=== PATIENT | male | born 1990 | race Caucasian/White ===

== ENCOUNTER 2018-07-22 06:24 | Emergency (ER) | payer BC ==
[2018-07-22] MEDS ORDERED: SODIUM CHLORIDE 0.9% 1,000 ML IV STA (06:42)
[2018-07-22 06:55] LABS: Basophils % (A) 1 %; Eosinophils # (A) 0.2 k/uL (0-0.7); Eosinophils % (A) 2 %; HCT 46.2 % (39.0-53.0); HGB 15.3 gm/dL (13.0-17.5); Lymphocytes # (A) 1.8 k/uL (1.0-4.8); Lymphocytes % (A) 19 %; MCHC 33.1 g/dL (31.0-37.0); MCV 87.8 fL (80.0-100.0); Mean Platelet Volume 7.5; Monocytes # (A) 0.5 k/uL (0-1.0); Monocytes % (A) 5 %; Neutrophils # (A) 6.6 k/uL (1.3-7.7); Neutrophils % (A) 72 %; Platelet Count 211 k/uL (150-450); RBC 5.27 m/uL (4.30-5.90); WBC 9.2 k/uL (3.8-10.6)
--- NOTE | 2018-07-22 06:59 | XR ---
EXAMINATION TYPE: XR chest 2V DATE OF EXAM: 07/22/2018 HISTORY: syncope. REFERENCE: Previous study dated 07/02/2009. FINDINGS: The lungs are clear. Pleural space are clear. The heart is not enlarged. IMPRESSION: NORMAL CHEST.
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
[2018-07-22 07:04] LABS: Albumin 4.5 g/dL (3.5-5.0); Anion Gap 10 mmol/L; Calcium 9.5 mg/dL (8.4-10.2); Carbon Dioxide 24 mmol/L (22-30); Chloride 107 mmol/L (98-107); Glucose 132 mg/dL (74-99); Sodium 141 mmol/L (137-145); Total Bilirubin 0.5 mg/dL (0.2-1.3); Total Protein 7.6 g/dL (6.3-8.2)
[2018-07-22 07:05] LABS: Blood Urea Nitrogen 13 mg/dL (9-20); Potassium 4.2 mmol/L (3.5-5.1)
[2018-07-22 07:06] LABS: ALT 24 U/L (21-72); AST 24 U/L (17-59); Alkaline Phosphatase 78 U/L (38-126); Magnesium 1.8 mg/dL (1.6-2.3)
[2018-07-22 07:07] LABS: D-Dimer 0.18 mg/L FEU (<0.60); Partial Thromboplastin Time 24.3 sec (22.0-30.0); Prothrombin Time 10.4 sec (9.0-12.0)
[2018-07-22 08:00] VITALS: BP 130/81; PULSE 98; RESP 18; TEMP 98
[2018-07-22 13:37] LABS: Glucose,Whole Blood 127 mg/dL (75-99)
== END 2018-07-22 08:00 | disposition home or self-care (01) ==
LOC: EC 06:24
DX: I10 Essential (primary) hypertension (principal); R07.89 Other chest pain; R00.2 Palpitations; F17.200 Nicotine dependence, unspecified, uncomplicated
CPT/HCPCS: 36415; 71046; 80053; 83735; 84484; 85025; 85379; 85610; 85730; 93005; 96360; 99284

== ENCOUNTER 2018-11-23 12:54 | Day surgery (SDC) | payer BC ==
[2018-11-20 11:39] VITALS: BMI 34.3
[2018-11-23 14:09] LABS: African American GFR (CKD) >90 (>60 ml/min/1.73 sqM); Anion Gap 12 mmol/L; Blood Urea Nitrogen 17 mg/dL (9-20); Calcium 9.9 mg/dL (8.4-10.2); Carbon Dioxide 24 mmol/L (22-30); Chloride 104 mmol/L (98-107); Glucose 96 mg/dL (74-99); Potassium 4.2 mmol/L (3.5-5.1); Sodium 140 mmol/L (137-145)
[2018-11-23 14:14] LABS: Basophils # (A) 0.1 k/uL (0-0.2); Basophils % (A) 2 %; Eosinophils # (A) 0.1 k/uL (0-0.7); Eosinophils % (A) 2 %; HCT 48.1 % (39.0-53.0); Lymphocytes # (A) 1.9 k/uL (1.0-4.8); Lymphocytes % (A) 25 %; MCH 29.3 pg (25.0-35.0); MCHC 33.1 g/dL (31.0-37.0); MCV 88.4 fL (80.0-100.0); Mean Platelet Volume 7.4; Monocytes # (A) 0.4 k/uL (0-1.0); Monocytes % (A) 6 %; Neutrophils # (A) 4.8 k/uL (1.3-7.7); Neutrophils % (A) 64 %; Platelet Count 261 k/uL (150-450); RBC 5.45 m/uL (4.30-5.90); RDW 12.9 % (11.5-15.5); WBC 7.5 k/uL (3.8-10.6)
[2018-11-23] MEDS ORDERED: ISOPROTERENOL 250 MCG/1.25 ML SYR IV ONE (16:39)
[2018-11-23] MEDS ORDERED: fentaNYL (PF) 50 MCG/ML 2 ML AMP ONE (16:39)
[2018-11-23] MEDS ORDERED: KETAMINE 10 MG/ML 20 ML VIAL ONE (16:39)
[2018-11-23] MEDS ORDERED: MIDAZOLAM 2 MG/2 ML VIAL ONE (16:39)
[2018-11-23] MEDS ORDERED: IV FLUID CONTINUATION 900 ML IV ONE (16:39)
[2018-11-23] MEDS ORDERED: PROPOFOL 10 MG/ML 20 ML VIAL IV ONE (16:39)
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
[2018-11-23] MEDS ORDERED: LIDOCAINE 1% INJ 10MG/ML (20 ML MDV) ONE (17:03)
[2018-11-23] MEDS ORDERED: LIDOCAINE 1% INJ 10MG/ML (20 ML MDV) SQ ONE (17:04)
[2018-11-23] MEDS ORDERED: ACETAMINOPHEN TAB 325 MG TAB PO PRN (18:20)
[2018-11-23] MEDS ORDERED: ACETAMINOPHEN IV (For NPO) 1,000 MG in EMPTY BAG 1 BAG IVPB ONE (19:00)
[2018-11-23] MEDS: LACTATED RINGERS 1,000 ML IV SCH ×2 (19:49→20:02)
[2018-11-23] MEDS: SODIUM CHLORIDE 0.9% 1,000 ML IV SCH (19:49)
[2018-11-23] MEDS ORDERED: CITALOPRAM HYDROBROMIDE 20 MG TAB PO SCH (21:00)
[2018-11-23] MEDS ORDERED: HYDROcodone/APAP 5-325MG 1 EACH TAB PO PRN (22:00)
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
--- NOTE | 2018-11-23 22:47 | LTR ---
To: Dr. Isis Avelar Re: Marko Duran (89) Dear Isis, I had the pleasure of seeing Marko Duran in electrophysiology followup. Marko has had palpitations as well as one documented run of nonsustained ventricular tachycardia on the event monitor. Today he underwent a detailed diagnostic EP study with and without Isuprel. No arrhythmias were inducible, either SVT or VT. This was a completely normal EP study. He will continue to follow up with you and Dr. Pyle as before. Thank you for entrusting me with the care of your patient. Warm regards. Sincerely, Cristino Brock MD MMYURYL / TAVON: [id number] /
[2018-11-24] MEDS: SODIUM CHLORIDE 0.9% 1,000 ML IV SCH (05:44)
[2018-11-24 07:12] VITALS: BP 121/75; PULSE 68; RESP 16; TEMP 97.8
--- NOTE | 2018-11-24 08:04 | P.DS ---
Providers Attending physician: Cristino Brock Primary care physician: [facility] Course: Patient is doing well from a cardiac standpoint. He denies any chest discomfort dizziness lightheadedness or palpitations. Last night he did have some oozing the groin but this morning there is no oozing. Minimal pain no swelling no hematoma no bruising No chest discomfort dizziness lightheadedness or shortness of breath Twelve-lead ECG shows sinus rhythm normal AL narrow QRS narrow QRS normal QT interval Heart sounds normal S1 normal S2, soft systolic murmur Breath sounds are clear no rhonchi no crackles Abdomen soft nontender Extremity warm no edema No JVD Impression Recurrent palpitations 1 ventricular quadruplet on monitor 1 episode of presyncope preceded by palpitations No inducible arrhythmias at EP study no supraventricular arrhythmias no ventricular arrhythmias Plan Follow-up with Dr. Pyle within a week No changes in medications Adequate hydration Patient may go home from a cardiac standpoint today as well as amylase in the hallways and his groins healing well and he is hemodynamically stable Plan - Discharge Summary Discharge Rx Participant: Yes New Discharge Prescriptions: No Action Cetirizine HCl [Zyrtec] 10 mg PO DAILY Lisinopril [Prinivil] 5 mg PO DAILY Citalopram Hydrobromide [CeleXA] 20 mg PO HS Discharge Medication List Cetirizine HCl [Zyrtec] 10 mg PO DAILY 11/20/18 [History] Citalopram Hydrobromide [CeleXA] 20 mg PO HS 11/20/18 [History] Lisinopril [Prinivil] 5 mg PO DAILY 11/20/18 [History] Follow up Appointment(s)/Referral(s): Shon Pyle MD [STAFF PHYSICIAN] - 1 Week Activity/Diet/Wound Care/Special Instructions: Post EP study - Ablation instructions 1. Keep access sites dry for 2 days. 2. No heavy lifting or straining for 2 days. 3. Avoid bending the hips repeatedly for 2 days. 4. You may go up and down stairs slowly Call if the following is noted 1. Bleeding, increasing swelling or pain at the access sites. 2. Increasing chest discomfort, especially upon taking a deep breath. 3. Increasing shortness of breath, at rest or with exertion. 4. Undue cough / phlegm 5. Difficulty or pain while swallowing. 6. Pain or change in color in the extremities. 7. Fever, chills, rigors. 8. Increasing headache or neurologic symptoms. 9. Dizziness, fainting, palpitations Follow-up with Dr. Pyle within 1-2 weeks No changes in medications
[2018-11-24] MEDS ORDERED: LISINOPRIL 5 MG TAB PO SCH (09:00)
[2018-11-24] MEDS ORDERED: LORATADINE 10 MG TAB PO SCH (09:00)
== END 2018-11-24 10:31 | disposition home or self-care (01) ==
LOC: CATHEP 12:54 → 1SOBS 18:19 → CATHEP 11-24 10:31
PROVIDERS: ATTEND Internal Medicine Clinical Cardiac Electrophysiology
DX: I47.2 Ventricular tachycardia (principal); R55 Syncope and collapse; R00.2 Palpitations; I10 Essential (primary) hypertension; F17.210 Nicotine dependence, cigarettes, uncomplicated; G43.909 Migraine, unspecified, not intractable, without status migrainosus; Z79.899 Other long term (current) drug therapy
CPT/HCPCS: 93623; 93620; 80048; 85025; C1894; C1769 ×2; C1730 ×3; J2250; J2001; J3010; J2704

== ENCOUNTER 2019-04-23 09:27 | Emergency (ER) | payer BC ==
[2019-04-23 09:43] VITALS: TEMP 98.4
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
[2019-04-23] MEDS ORDERED: KETOROLAC 30 MG/ML 1 ML VIAL IM STA (10:06)
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
[2019-04-23 11:11] VITALS: BP 131/72; PULSE 70; RESP 16
== END 2019-04-23 11:10 | disposition home or self-care (01) ==
LOC: EC 09:27
DX: S90.01XA Contusion of right ankle, initial encounter (principal); F41.9 Anxiety disorder, unspecified; I10 Essential (primary) hypertension; F17.200 Nicotine dependence, unspecified, uncomplicated; Z79.899 Other long term (current) drug therapy; Z95.5 Presence of coronary angioplasty implant and graft; Y93.55 Activity, bike riding; V28.4XXA Motorcycle driver injured in noncollision transport accident in traffic accident, initial encounter; Y92.410 Unspecified street and highway as the place of occurrence of the external cause; Y93.89 Activity, other specified
CPT/HCPCS: 73610; 73630; 96372; 99283; J1885

== ENCOUNTER → 2019-12-17 | Outpatient (CLI) | payer BC | END | disposition home or self-care (01) | LOC: LABWHC1 14:10 | PROVIDERS: ATTEND Internal Medicine | DX: Z03.818 Encounter for observation for suspected exposure to other biological agents ruled out (principal) | CPT/HCPCS: U0003; C9803 ==

== ENCOUNTER 2020-07-19 02:04 | Emergency (ER) | payer BC ==
[2020-07-19] MEDS ORDERED: MECLIZINE 12.5 MG TAB PO STA (02:32)
[2020-07-19] MEDS ORDERED: SODIUM CHLORIDE 0.9% 1,000 ML IV STA (02:32)
--- NOTE | 2020-07-19 02:36 | ED ---
General Adult HPI - General Chief complaint: Dizziness Stated complaint: Chest pain, dizziness Time Seen by Provider: 07/19/20 02:24 Source: patient Mode of arrival: wheelchair Limitations: no limitations - History of Present Illness Initial comments: 30-year-old male patient presents to the emergency department today for evaluation of dizziness and chest pain. 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 States he became very dizzy and almost passed out. States he did have some tightness to the substernal region. Denies any shortness of breath. Denies numbness tingling or weakness to the extremities. Patient states that he has been having dizziness for the last 1.5 months. States he did see his doctor for it who started him on Buspar. States that the medication made the symptoms worse so he stopped it. Patient has not been evaluated any further for the dizziness. He states that he has some dizziness everyday, feels like his head is spinning around. Denies any syncope. Reports daily headaches as well. Reports occasional blurred vision, no double vision. Denies any head injury. Has been worked up in the past for palpitations, wore heart monitor and had exploratory heart catheterization which were negative. - Related Data Home Medications Medication Instructions Recorded Confirmed Cetirizine HCl [Zyrtec] 10 mg PO DAILY 11/20/18 11/23/18 Citalopram Hydrobromide [CeleXA] 20 mg PO HS 11/20/18 11/23/18 lisinopriL [Prinivil] 5 mg PO DAILY 11/20/18 11/23/18 Previous Rx's Medication Instructions Recorded Meclizine [Antivert] 25 mg PO TID #15 tab 07/19/20 Allergies Allergy/AdvReac Type Severity Reaction Status Date / Time No Known Allergies Allergy Verified 07/19/20 02:17 Review of Systems ROS Statement: Those systems with pertinent positive or pertinent negative responses have been documented in the HPI. ROS Other: All systems not noted in ROS Statement are negative. Past Medical History Past Medical History: Hypertension Additional Past Medical History / Comment(s): migraines, See Dr Brock H&P, anxiety History of Any Multi-Drug Resistant Organisms: None Reported Past Surgical History: No Surgical Hx Reported, Heart Catheterization Additional Past Surgical History / Comment(s): Denies surgery Past Anesthesia/Blood Transfusion Reactions: Family History of Problems w/ Anesthesia, Motion Sickness Additional Past Anesthesia/Blood Transfusion Reaction / Comment(s): mom woke up and had a panic attack Past Psychological History: Anxiety, Panic Disorder Smoking Status: Current every day smoker Past Alcohol Use History: Rare Past Drug Use History: None Reported - Past Family History Mother Family Medical History: No Reported History General Exam Limitations: no limitations General appearance: alert, in no apparent distress, other (This is a well-develo ped, well-nourished adult male patient in no acute distress. Vital signs upon presentation are temperature 98.7F, pulse 86, respirations 18, blood pressure 135/87, pulse ox 97% on room air.) Eye exam: Present: normal appearance, PERRL, EOMI. Absent: scleral icterus, conjunctival injection, nystagmus, periorbital swelling ENT exam: Present: normal exam, normal oropharynx, mucous membranes moist Respiratory exam: Present: normal lung sounds bilaterally. Absent: respiratory distress, wheezes, rales, rhonchi, stridor Cardiovascular Exam: Present: regular rate, normal rhythm, normal heart sounds. Absent: systolic murmur, diastolic murmur, rubs, gallop, clicks GI/Abdominal exam: Present: soft, normal bowel sounds. Absent: distended, tenderness, guarding, rebound, rigid Neurological exam: Present: alert, oriented X3, CN II-XII intact Expanded Speech: Present: fluid speech Cranial nerves: EOM's Intact: Normal, Nystagmus: Normal Motor strength exam: RUE: 5, LUE: 5, RLE: 5, LLE: 5 Psychiatric exam: Present: normal affect, normal mood Skin exam: Present: warm, dry, intact, normal color. Absent: rash Course Vital Signs 07/19/20 07/19/20 02:14 03:17 Temperature 98.7 F Pulse Rate 86 81 Respiratory 18 20 Rate Blood Pressure 135/87 112/78 O2 Sat by Pulse 97 98 Oximetry EKG Findings - EKG Comments: EKG Findings:: EKG obtained at 222 shows normal sinus rhythm with a ventricular rate is 78, DC interval 202, QRS duration 98, QT 362, QTc 412. No evidence of ST elevation or depression. Medical Decision Making - Medical Decision Making 30-year-old male patient percents emergency department today for evaluation of chest pain and dizziness. 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 Physical examination is unremarkable. Lungs are clear to auscultation with good air movement. Vital signs are within normal range. EKG was unremarkable. Chest x- ray is negative. States he has been having dizziness and headaches for at least a month and a half. We will try a course of meclizine to see if this is helpful to dizziness. He is instructed to primary care physician, discuss referral to neurology and/or ENT for further evaluation. Return parameters discussed in detail. He verbalizes understanding and agrees with this plan. Case discussed my attending Dr. Jasso. - Lab Data Result diagrams: 07/19/20 02:42 07/19/20 02:42 Lab Results 07/19/20 07/19/20 07/19/20 Range/Units 02:42 02:42 02:42 WBC 8.5 (3.8-10.6) k/uL RBC 4.76 (4.30-5.90) m/uL Hgb 14.7 (13.0-17.5) gm/dL Hct 41.6 (39.0-53.0) % MCV 87.4 (80.0-100.0) fL MCH 30.8 (25.0-35.0) pg MCHC 35.3 (31.0-37.0) g/dL RDW 12.5 (11.5-15.5) % Plt Count 226 (150-450) k/uL MPV 7.6 Neutrophils % 62 % Lymphocytes % 28 % Monocytes % 6 % Eosinophils % 2 % Basophils % 1 % Neutrophils # 5.2 (1.3-7.7) k/uL Lymphocytes # 2.4 (1.0-4.8) k/uL Monocytes # 0.5 (0-1.0) k/uL Eosinophils # 0.2 (0-0.7) k/uL Basophils # 0.1 (0-0.2) k/uL Sodium 138 (137-145) mmol/L Potassium 4.2 (3.5-5.1) mmol/L Chloride 106 (98-107) mmol/L Carbon Dioxide 25 (22-30) mmol/L Anion Gap 7 mmol/L BUN 16 (9-20) mg/dL Creatinine 1.00 (0.66-1.25) mg/dL Est GFR (CKD-EPI)AfAm >90 (>60 ml/min/1.73 sqM) Est GFR (CKD-EPI)NonAf >90 (>60 ml/min/1.73 sqM) Glucose 103 H (74-99) mg/dL Calcium 9.3 (8.4-10.2) mg/dL Magnesium 1.9 (1.6-2.3) mg/dL Total Bilirubin 0.1 L (0.2-1.3) mg/dL AST 23 (17-59) U/L ALT 21 (4-49) U/L Alkaline Phosphatase 78 (38-126) U/L Troponin I (0.000-0.034) ng/mL Total Protein 6.9 (6.3-8.2) g/dL Albumin 4.3 (3.5-5.0) g/dL Urine Color Yellow Urine Appearance Clear (Clear) Urine pH 6.5 (5.0-8.0) Ur Specific [place] 1.027 (1.001-1.035) Urine Protein Negative (Negative) Urine Glucose (UA) Negative (Negative) Urine Ketones Negative (Negative) Urine Blood Negative (Negative) Urine Nitrite Negative (Negative) Urine Bilirubin Negative (Negative) Urine Urobilinogen <2.0 (<2.0) mg/dL Ur Leukocyte Esterase Negative (Negative) 07/19/20 Range/Units 02:42 WBC (3.8-10.6) k/uL RBC (4.30-5.90) m/uL Hgb (13.0-17.5) gm/dL Hct (39.0-53.0) % MCV (80.0-100.0) fL MCH (25.0-35.0) pg MCHC (31.0-37.0) g/dL RDW (11.5-15.5) % Plt Count (150-450) k/uL MPV Neutrophils % % Lymphocytes % % Monocytes % % Eosinophils % % Basophils % % Neutrophils # (1.3-7.7) k/uL Lymphocytes # (1.0-4.8) k/uL Monocytes # (0-1.0) k/uL Eosinophils # (0-0.7) k/uL Basophils # (0-0.2) k/uL Sodium (137-145) mmol/L Potassium (3.5-5.1) mmol/L Chloride (98-107) mmol/L Carbon Dioxide (22-30) mmol/L Anion Gap mmol/L BUN (9-20) mg/dL Creatinine (0.66-1.25) mg/dL Est GFR (CKD-EPI)AfAm (>60 ml/min/1.73 sqM) Est GFR (CKD-EPI)NonAf (>60 ml/min/1.73 sqM) Glucose (74-99) mg/dL Calcium (8.4-10.2) mg/dL Magnesium (1.6-2.3) mg/dL Total Bilirubin (0.2-1.3) mg/dL AST (17-59) U/L ALT (4-49) U/L Alkaline Phosphatase (38-126) U/L Troponin I <0.012 (0.000-0.034) ng/mL Total Protein (6.3-8.2) g/dL Albumin (3.5-5.0) g/dL Urine Color Urine Appearance (Clear) Urine pH (5.0-8.0) Ur Specific [place] (1.001-1.035) Urine Protein (Negative) Urine Glucose (UA) (Negative) Urine Ketones (Negative) Urine Blood (Negative) Urine Nitrite (Negative) Urine Bilirubin (Negative) Urine Urobilinogen (<2.0) mg/dL Ur Leukocyte Esterase (Negative) - Radiology Data Radiology results: image reviewed No acute cardiopulmonary process Disposition Clinical Impression: Dizziness, Chest pain Disposition: HOME SELF-CARE Condition: Good Instructions (If sedation given, give patient instructions): Dizziness (ED), Chest Pain (ED) Additional Instructions: Increase fluids. Rest. Take medications as directed. Follow-up with the primary care physician for recheck in 1-2 days. Discussed possible referral to neurology or ENT if symptoms do not improve. Return for any new, worsening, or concerning symptoms. Prescriptions: Meclizine [Antivert] 25 mg PO TID #15 tab Is patient prescribed a controlled substance at d/c from ED?: No Referrals: Isis Avelar MD [Primary Care Provider] - 1-2 days Time of Disposition: 03:49
[2020-07-19 03:00] LABS: Basophils # (A) 0.1 k/uL (0-0.2); Basophils % (A) 1 %; Eosinophils # (A) 0.2 k/uL (0-0.7); Eosinophils % (A) 2 %; HCT 41.6 % (39.0-53.0); HGB 14.7 gm/dL (13.0-17.5); Lymphocytes # (A) 2.4 k/uL (1.0-4.8); Lymphocytes % (A) 28 %; MCH 30.8 pg (25.0-35.0); MCHC 35.3 g/dL (31.0-37.0); MCV 87.4 fL (80.0-100.0); Mean Platelet Volume 7.6; Monocytes # (A) 0.5 k/uL (0-1.0); Monocytes % (A) 6 %; Neutrophils # (A) 5.2 k/uL (1.3-7.7); Neutrophils % (A) 62 %; Platelet Count 226 k/uL (150-450); RBC 4.76 m/uL (4.30-5.90); RDW 12.5 % (11.5-15.5); WBC 8.5 k/uL (3.8-10.6)
[2020-07-19 03:07] LABS: ALT 21 U/L (4-49); AST 23 U/L (17-59); African American GFR (CKD) >90 (>60 ml/min/1.73 sqM); Albumin 4.3 g/dL (3.5-5.0); Alkaline Phosphatase 78 U/L (38-126); Anion Gap 7 mmol/L; Blood Urea Nitrogen 16 mg/dL (9-20); Calcium 9.3 mg/dL (8.4-10.2); Carbon Dioxide 25 mmol/L (22-30); Chloride 106 mmol/L (98-107); Glucose 103 mg/dL (74-99); Magnesium 1.9 mg/dL (1.6-2.3); Non-African American GFR(CKD) >90 (>60 ml/min/1.73 sqM); Potassium 4.2 mmol/L (3.5-5.1); Sodium 138 mmol/L (137-145); Total Bilirubin 0.1 mg/dL (0.2-1.3); Total Protein 6.9 g/dL (6.3-8.2)
[2020-07-19 03:14] LABS: Appearance,Urine Clear (Clear); Bilirubin,Urine Negative (Negative); Blood,Urine Negative (Negative); Color,Urine Yellow; Glucose,Urine (UA) Negative (Negative); Ketones,Urine Negative (Negative); Leukocyte Esterase,Urine Negative (Negative); Nitrite,Urine Negative (Negative); PH, Urine 6.5 (5.0-8.0); Protein,Urine Negative (Negative); Specific Gravity,Urine 1.027 (1.001-1.035); Urobilinogen,Urine <2.0 mg/dL (<2.0)
--- NOTE | 2020-07-19 03:52 | XR ---
EXAM: XR Chest, 1 View CLINICAL HISTORY: ITS.REASON XR Reason: Chest pain TECHNIQUE: Frontal view of the chest. COMPARISON: 07/22/2018 FINDINGS: Lungs: No significant abnormality. No consolidation. Pleural space: No significant abnormality. No pneumothorax. Heart: No significant abnormality. No cardiomegaly. Mediastinum: No significant abnormality. Bones/joints: No acute osseous abnormality. IMPRESSION: No acute cardiopulmonary process.
[2020-07-19 04:24] VITALS: BP 114/75; PULSE 72; RESP 18; TEMP 98.1
== END 2020-07-19 04:24 | disposition home or self-care (01) ==
LOC: EC 02:04
DX: R07.9 Chest pain, unspecified (principal); R42 Dizziness and giddiness; I10 Essential (primary) hypertension; F17.200 Nicotine dependence, unspecified, uncomplicated
CPT/HCPCS: 36415; 71045; 80053; 81003; 83735; 84484; 85025; 93005; 96360; 96361; 99285

== ENCOUNTER 2020-12-01 08:56 | Day surgery (SDC) | payer BC ==
[2020-11-28 09:46] VITALS: BMI 33.5
[~2020-12-01 08:56] MED LIST: SODIUM CHLORIDE 0.9% 1,000 ML IV SCH
[2020-12-01 09:34] VITALS: RESP 16; TEMP 98.1
[2020-12-01 10:44] VITALS: BP 119/82; PULSE 76
--- NOTE | 2020-12-01 17:35 | P.EPPROC ---
- EP Procedure Note Electrophysiology Procedure Note: Diagnosis Recurrent dizzy spells Twelve-lead EKG shows sinus rhythm normal NV narrow QRS normal ST segments Normal QT interval No delta waves, no epsilon waves Tilt table test protocol Baseline blood pressure 123/67 mmHg, Baseline heart rate 72 beats a minute Patient was tilted upright at an angle of 70 per protocol No change in heart rate and blood pressure line no evidence for neurocardiogenic syncope Impression Normal twelve-lead EKG Normal heart rate and blood pressure response to upright tilt
== END 2020-12-01 10:59 | disposition home or self-care (01) ==
LOC: CATHEP 08:56
PROVIDERS: ATTEND Internal Medicine Clinical Cardiac Electrophysiology
DX: R42 Dizziness and giddiness (principal); Z20.822 Contact with and (suspected) exposure to COVID-19
CPT/HCPCS: 87635; 93660

== ENCOUNTER → 2020-12-25 | Outpatient (CLI) | payer BC ==
--- NOTE | 2020-12-25 09:51 | MR ---
EXAMINATION TYPE: MR brain and iac wo/w con DATE OF EXAM: 12/25/2020 COMPARISON: None HISTORY: vertigo dizziness TECHNIQUE: Multiplanar, multisequence images of the brain and brainstem is performed without and with IV contras t, utilizing 9 mL intravenous Gadavist . FINDINGS: Diffusion weighted images demonstrate no evidence of a recent infarct or other diffusion ab normality. There is no extra-axial fluid collection or significant white matter signal abnormality. The ventricular system and cisternal spaces are normal in size and appearance. The brain volume is age appropriate. Midline structures demonstrate normal morphology. Cerebellar tonsils low-lying in position at the lev el the foramen magnum with no discrete evidence of Chiari malformation. Post contrast images demonst rate no abnormal enhancement. The dural venous sinuses appear patent. The visualized sinuses are comp atible with mild chronic sinusitis and the globes are intact. There is no evidence of cerebellopontine angle mass or pathologic enhancement to suggest acoustic mic wannoma. IMPRESSION: 1. No evidence of cerebellopontine angle mass or acoustic schwannoma.
== END | disposition home or self-care (01) ==
LOC: RADMRIMAIN 08:06
PROVIDERS: ATTEND Otolaryngology
DX: R42 Dizziness and giddiness (principal)
CPT/HCPCS: 70553; A9585

== ENCOUNTER 2022-05-12 13:21 | Emergency (ER) | payer OTHER, BC ==
[2022-05-12] MEDS ORDERED: FLUORESCEIN STRIPS 1 MG STRIP RIGHT EYE ONE (13:45)
[2022-05-12] MEDS ORDERED: DIPH,PERTUS(ACELL)TETVAC-LF 0.5 ML VIAL IM ONE (14:26)
[2022-05-12] MEDS ORDERED: SODIUM CHLORIDE 0.9% 1,000 ML IV ONE (14:26)
[2022-05-12] MEDS ORDERED: TOBRAMYCIN 0.3% OPHTH DROPS 5 ML BTL RIGHT EYE STA (14:26)
--- NOTE | 2022-05-12 14:45 | ED ---
General Adult HPI - General Chief complaint: Eye Problems Stated complaint: Rt eye injury Time Seen by Provider: 05/12/22 13:34 Source: patient, RN notes reviewed Mode of arrival: ambulatory Limitations: no limitations - History of Present Illness Initial comments: 32-year-old male who presents to the emergency department with a chief complaint of right eye problem. Patient reports he was chopping wood when he feels a piece of wood went into his right eye. He is reporting decreased vision and blurred vision with increased tearing. He denies any contact use. He is not up-to-date on his tetanus vaccination. - Related Data Home Medications Medication Instructions Recorded Confirmed Cetirizine HCl [Zyrtec] 10 mg PO DAILY 11/20/18 12/01/20 Citalopram Hydrobromide [CeleXA] 20 mg PO HS 11/20/18 12/01/20 lisinopriL [Prinivil] 5 mg PO DAILY 11/20/18 12/01/20 Nortriptyline [Pamelor] 25 mg PO HS 11/28/20 12/01/20 Previous Rx's Medication Instructions Recorded Meclizine [Antivert] 25 mg PO TID #15 tab 07/19/20 Amoxicillin 500 mg PO Q8H #30 capsule 03/23/22 Allergies Allergy/AdvReac Type Severity Reaction Status Date / Time No Known Allergies Allergy Verified 05/12/22 13:33 Review of Systems ROS Statement: Those systems with pertinent positive or pertinent negative responses have been documented in the HPI. ROS Other: All systems not noted in ROS Statement are negative. Past Medical History Past Medical History: Hypertension Additional Past Medical History / Comment(s): migraines, See Dr Brock H&P, anxiety History of Any Multi-Drug Resistant Organisms: None Reported Past Surgical History: Heart Catheterization Additional Past Surgical History / Comment(s): Denies surgery Past Anesthesia/Blood Transfusion Reactions: Family History of Problems w/ Anesthesia, Motion Sickness Additional Past Anesthesia/Blood Transfusion Reaction / Comment(s): mom woke up and had a panic attack Past Psychological History: Anxiety, Panic Disorder Smoking Status: Former smoker Past Alcohol Use History: Rare Past Drug Use History: None Reported - Past Family History Mother Family Medical History: No Reported History General Exam Limitations: no limitations General appearance: alert, in no apparent distress Head exam: Present: atraumatic, normocephalic, normal inspection Eye exam: Present: normal appearance, PERRL, EOMI. Absent: scleral icterus, conjunctival injection, periorbital swelling ENT exam: Present: normal exam, mucous membranes moist Neck exam: Present: normal inspection. Absent: tenderness, meningismus, lymphadenopathy Respiratory exam: Present: normal lung sounds bilaterally. Absent: respiratory distress, wheezes, rales, rhonchi, stridor Cardiovascular Exam: Present: regular rate, normal rhythm, normal heart sounds. Absent: systolic murmur, diastolic murmur, rubs, gallop, clicks GI/Abdominal exam: Present: soft, normal bowel sounds. Absent: distended, tenderness, guarding, rebound, rigid Extremities exam: Present: normal inspection, full ROM, normal capillary refill. Absent: tenderness, pedal edema, joint swelling, calf tenderness Back exam: Present: normal inspection Neurological exam: Present: alert, oriented X3, CN II-XII intact Psychiatric exam: Present: normal affect, normal mood Skin exam: Present: warm, dry, intact, normal color. Absent: rash Course Vital Signs 05/12/22 05/12/22 13:30 15:13 Temperature 97.5 F L 98.1 F Pulse Rate 89 74 Respiratory 20 14 Rate Blood Pressure 126/74 128/68 O2 Sat by Pulse 99 100 Oximetry - Reevaluation(s) Reevaluation #1: 05/12/22 17:41 Once exam reveals area of fluorescein uptake Medical Decision Making - Medical Decision Making Was pt. sent in by a medical professional or institution (, PA, SHAREPOINT APPLICATION ARCHITECT, urgent care, hospital, or skilled nursing...) When possible be specific @ -[No] Did you speak to anyone other than the patient for history (EMS, parent, family, police, friend...)? What history was obtained from this source @ -[No] Did you review nursing and triage notes (agree or disagree)? Why? @ -[I reviewed and agree with nursing and triage notes] Were old charts reviewed (outside hosp., previous admission, EMS record, old EKG, old radiological studies, urgent care reports/EKG's, skilled nursing records)? Report findings @ -[No old charts were reviewed] Differential Diagnosis (chest pain, altered mental status, abdominal pain women, abdominal pain men, vaginal bleeding, weakness, fever, dyspnea, syncope, headache, dizziness, GI bleed, back pain, seizure, CVA, palpatations, mental health, musculoskeletal)? @ -[not applicable] EKG interpreted by me (3pts min.). @ -[As above] X-rays interpreted by me (1pt min.). @ -[None done] CT interpreted by me (1pt min.). @ -[None done] U/S interpreted by me (1pt. min.). @ -[None done] What testing was considered but not performed or refused? (CT, X-rays, U/S, labs)? Why? @ -[None] What meds were considered but not given or refused? Why? @ -[None] Did you discuss the management of the patient with other professionals (professionals i.e. , PA, SHAREPOINT APPLICATION ARCHITECT, lab, RT, psych nurse, family welfare social work professor, sports lawyer, teacher, traffic division commanding officer, rn case management)? Give summary @ -[No] Was smoking cessation discussed for >3mins.? @ -[No] Was critical care preformed (if so, how long)? @ -[No] Were there social determinants of health that impacted care today? How? (Homelessness, low income, unemployed, alcoholism, drug addiction, transportation, low edu. Level, literacy, decrease access to med. care, [facility], rehab)? @ -[No] Was there de-escalation of care discussed even if they declined (Discuss DNR or withdrawal of care, Hospice)? DNR status @ -[No] What co-morbidities impacted this encounter? (DM, HTN, Smoking, COPD, CAD, Cancer, CVA, ARF, Chemo, Hep., AIDS, mental health diagnosis, sleep apnea, morbid obesity)? @ -[None] Was patient admitted / discharged? Hospital course, mention meds given and route, prescriptions, significant lab abnormalities, going to OR and other pertinent info. @ -Discharged. This is a 32-year-old male who presents with right eye problem. Patient had a thorough history and physical performed while in the ENT. Physical exam reveals an injected right eye with clear drainage. There is fluorescein uptake with slit exam. Patient was given a tetanus vaccination and Tobrex drops. Instructed to follow up with ophthalmology tomorrow. Return precautions were discussed at length. He was discharged in stable condition Undiagnosed new problem with uncertain prognosis? @ -[No] Drug Therapy requiring intensive monitoring for toxicity (Heparin, Nitro, Insulin, Cardizem)? @ -[No] Were any procedures done? @ -[No] Diagnosis/symptom? @ -R corneal abrasion Acute, or Chronic, or Acute on Chronic? @ -acute Uncomplicated (without systemic symptoms) or Complicated (systemic symptoms)? @ -uncomplicated Side effects of treatment? @ -[No] Exacerbation, Progression, or Severe Exacerbation? @ -[No] Poses a threat to life or bodily function? How? (Chest pain, [place], [place], pneumonia, PE, COPD, DKA, ARF, appy, cholecystitis, CVA, Diverticulitis, Homicidal, Suicidal, threat to staff... and all critical care pts) @ -lw likelihood Disposition Clinical Impression: Corneal abrasion Disposition: HOME SELF-CARE Condition: Stable Instructions (If sedation given, give patient instructions): Eye Wash (Into the eye), Corneal Abrasion (ED) Additional Instructions: Please return to the nearest emergency department if symptoms worsen or persist Is patient prescribed a controlled substance at d/c from ED?: No Referrals: Nicki Ames DO [Primary Care Provider] - 1-2 days Acosta Schmitt MD [STAFF PHYSICIAN] - 1-2 days Time of Disposition: 15:02
[2022-05-12 15:14] VITALS: BP 128/68; PULSE 74; RESP 14; TEMP 98.1
== END 2022-05-12 15:15 | disposition home or self-care (01) ==
LOC: EC 13:21
DX: S05.01XA Injury of conjunctiva and corneal abrasion without foreign body, right eye, initial encounter (principal); I10 Essential (primary) hypertension; Z23 Encounter for immunization; Z95.5 Presence of coronary angioplasty implant and graft; Z87.891 Personal history of nicotine dependence; X58.XXXA Exposure to other specified factors, initial encounter; Y93.89 Activity, other specified; Y99.0 Civilian activity done for income or pay
CPT/HCPCS: 90471; 90715; 96360; 99283

== ENCOUNTER → 2023-05-18 | Outpatient (CLI) | payer OTHER ==
--- NOTE | 2023-05-18 15:08 | XR ---
EXAMINATION TYPE: XR hand complete LT, XR wrist complete LT DATE OF EXAM: 05/18/2023 2:57 PM CLINICAL INDICATION:Male, 33 years old with history of S63.502A LT WRIST SPRAIN,S63.602A LT THUMB SPR AIN; [facility] COMPARISON: None TECHNIQUE: XR hand complete LT, XR wrist complete LT Frontal, lateral and oblique views were obtained . FINDINGS: Normal alignment of the visualized joints. No acute osseous pathology is identified. No e vidence of soft tissue swelling. IMPRESSION: No acute osseous pathology.
== END | disposition home or self-care (01) ==
LOC: RADXRMAIN 14:38
PROVIDERS: ATTEND Emergency Medicine
DX: S63.502A Unspecified sprain of left wrist, initial encounter (principal); S63.602A Unspecified sprain of left thumb, initial encounter